=== PATIENT | female | born 1990 | race Caucasian/White ===

== ENCOUNTER 2017-11-15 02:49 | Inpatient (IN) ==
[2017-11-15] MEDS ORDERED: LIDOCAINE HCL 50 ML VIAL PERI PRN (05:10)
[2017-11-15] MEDS ORDERED: RINGER'S SOLUTION,LACTATED 1,000 ML IV ONE (05:10)
[2017-11-15] MEDS ORDERED: OXYTOCIN/DEXTROSE 5%-WATER 30 UNITS/500 ML BAG IV ONE ×2 (05:10→20:55)
[2017-11-15 05:33] LABS: Hemoglobin 11.8 gm/dL (12.5-16.0); Mean Cell Volume 87.1 fl (78-100); Mean Corpuscular Hemoglobin 29.4 pg (27-31); Mean Corpuscular Hgb Conc 33.7 g/dl (32-36); Mean Platelet Volume 13.8 fl (8-12.5); Neutrophil # 6.7 K/mm3 (1.3-6.0); Neutrophil % 65.4 % (42-75.0); Platelet Count 186 K/mm3 (150-450); Red Blood Count 4.02 M/mm3 (4.2-5.4); Red Cell Distribution Width 12.8 % (11.5-14.0); White Blood Count 10.2 K/mm3 (4.0-10.5)
[2017-11-15] MEDS: RINGER'S SOLUTION,LACTATED 1,000 ML IV PRN ×2 (05:51→14:43)
[2017-11-15] MEDS ORDERED: ONDANSETRON HCL/PF 2 MG/ML VIAL IV PRN (06:16)
[2017-11-15] MEDS ORDERED: NALOXONE HCL 1 MG/1 ML SYRG IV PRN (06:16)
[2017-11-15] MEDS ORDERED: BUPIVACAINE HCL/0.9 % NACL/PF 250 ML EP PRN (06:16)
[2017-11-15] MEDS ORDERED: fentaNYL CITRATE/PF 50 MCG/ML AMPUL IT SCH (06:30)
--- NOTE | 2017-11-15 07:10 | ANES ---
Anesthesia Pre Procedure Eval Vitals/Labs: Last Vital Signs Temp 36.9 C 11/15/17 05:27 Pulse 65 11/15/17 07:05 Resp 16 11/15/17 07:05 BP 134/73 11/15/17 07:05 Pulse Ox 99 11/15/17 07:05 HOME MEDICATIONS [id number]/FA/Omega3/Dha/Fish Oil [ Gummies] 1 each PO DAILY 11/15/17 [Last Taken 11/14/17 08:00] Allergies/Adverse Reactions: Allergies Allergy/AdvReac Type Severity Reaction Status Date / Time ropinirole AdvReac Severe Vomiting Verified 11/08/17 09:13 adhesive tape AdvReac Mild RASH Verified 11/08/17 09:13 - Planned Procedure Planned Procedure: LABOR epidural Medication List Reviewed:: Yes Allergies Verified: Yes Medical History (Last Reviewed 11/15/17 @ 07:09 by Sumeet Leal CRNA) Body piercing History of being tatooed Scoliosis Syncope and collapse Vision problems Weight gain Dairy allergy Eczema Migraine Seasonal allergies Crush injury Mononucleosis Vitamin D deficiency Anemia Asthma Depression Dizziness Excessive thirst Fatigue Foot pain GERD (gastroesophageal reflux disease) Left foot pain Lightheadedness Vomiting Surgical History (Last Reviewed 11/15/17 @ 07:09 by Sumeet Leal CRNA) Esophagogastroduodenoscopy with biopsy History of foot surgery History of nasal septoplasty History of oral surgery Hx of upper GI x-ray series Powers teeth removed Family History (Last Reviewed 11/15/17 @ 07:09 by Sumeet Leal CRNA) Father Myocardial infarction Cardiac defibrillator in place Grandfather Hypertension Myocardial infarction Grandfather Diabetes Hypertension Grandmother Meniere's disease Uterine cancer Syncope Grandmother Alzheimers disease Hypertension Mother Graves disease Colitis Sister Bipolar disorder Uncle Autism - Family Anesthesia History Family History:: no untoward family reactions to anesthesia - Airway/Neck/Teeth Within Normal Limits:: Yes Teeth Condition: Intact Mallampatti Score: 1 Thyromental (T-M) distance: > 6 cm Mandibulo Hyoid distance: > 3 cm - Respiratory Respiratory: lungs clear Smoking Status: Never smoker - Cardiovascular Patient History - Cardiac/Respiratory: No pertinent hx Tolerates Activity: Good Heart Sounds: S1 & S2, Regular - Anesthesia Assessment and Plan ASA Class: PS, II, E Anesthesia Type Plan: Epidural
--- NOTE | 2017-11-15 07:11 | ANES ---
Post Anesthesia Discharge - Transfer of Care Transfer of Care handoff given to nurse: Yes - Discharge to ASU Discharge to ASU-no complications/pt stable: Yes - Anesthesia Post Op Note Anesthesia Post Op Note: transferred care to OB RN
--- NOTE | 2017-11-15 07:13 | ANES ---
Anesthesia Procedure Note Procedure Note: ANESTHESIA PROCEDURE NOTE Date of Procedure: 11/15/2017 Time of procedure:[]. Performed by: Rui Leal CRNA Lodging Facilities Manager: None. Preprocedure diagnosis: Active labor. Post procedure diagnosis: Same. Procedure: Insertion of labor epidural. Indications: The patient is a [27] -year-old [primapara ] female in active labor requesting labor epidural for pain management. Findings: See below. Details of the procedure: The patient was placed in a sitting position. Back was prepped with DuraPrep. Patient was then draped in a sterile fashion. Lidocaine 1% was infiltrated to the skin and subcutaneous tissues at the level of the L3 4 interspace. The epidural space was identified using a 18-gauge Tuohy needle with [id number] technique. 20 mcg fentanyl was given intrathecally using a 27 ga. spinal needle. Epidural catheter was inserted without difficulty. Negative test dose was elicited using 5 mL of 1.5% preservative-free lidocaine plus epinephrine 1 200,000. The epidural catheter was then taped and secured in place. EBL: Minimal. Fluids: N/A. Specimen: N/A. Post procedure condition: The patient tolerated the procedure well. No complications were noted. Thank you for this consultation. Acuña CRNA
--- NOTE | 2017-11-15 07:14 | ANES ---
Post Anesthesia Assessment - Vital Signs Vitals: Last Vital Signs Temp 36.9 C 11/15/17 05:27 Pulse 65 11/15/17 07:05 Resp 16 11/15/17 07:05 BP 134/73 11/15/17 07:05 Pulse Ox 99 11/15/17 07:05 Airway Patency: Normal - Mental Status Level Of Consciousness: Awake - Pain Level Pain Score: 0 - N/V Assessment Nausea/Vomiting Presence: None Dehydration:: No
--- NOTE | 2017-11-15 15:03 | HP ---
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 On exam, cervix was dilated to 3 cm, then progressed to 4 cm. SROM was confirmed. The care is uneventful thus far. GBS was negative. PSH: none Medical History (Last Reviewed 11/15/17 @ 07:09 by Sumeet Leal CRNA) Body piercing History of being tatooed Scoliosis Syncope and collapse Vision problems Weight gain Dairy allergy Eczema Migraine Seasonal allergies Crush injury Mononucleosis Vitamin D deficiency Anemia Asthma Depression Dizziness Excessive thirst Fatigue Foot pain GERD (gastroesophageal reflux disease) Left foot pain Lightheadedness Vomiting Surgical History: Surgical History (Last Reviewed 11/15/17 @ 07:09 by Sumeet Leal CRNA) Esophagogastroduodenoscopy with biopsy History of foot surgery History of nasal septoplasty History of oral surgery Hx of upper GI x-ray series [place] teeth removed Family History: Family History (Last Reviewed 11/15/17 @ 07:09 by Sumeet Leal CRNA) Father Myocardial infarction Cardiac defibrillator in place Grandfather Hypertension Myocardial infarction Grandfather Diabetes Hypertension Grandmother Meniere's disease Uterine cancer Syncope Grandmother Alzheimers disease Hypertension Mother Graves disease Colitis Sister Bipolar disorder Uncle Autism Social History: Preferred Language Citizen Of [place] Smoking Status Never smoker Abuse History No History of abuse Psych History Hx of Anxiety,Hx of Depression Review Of Systems (GEN) - Review of Systems Abdominal: Present: Other - contractions Genitourinary: Present: Other - gush of fluid and leaking fluid Misc: All systems neg except as marked Immunizations: IMMUNIZATION HX Immunizations Up to Date Yes History of Influenza Vaccine Yes Hx Pneumococcal Vaccination No Allergies/Adverse Reactions: Allergies Allergy/AdvReac Type Severity Reaction Status Date / Time ropinirole AdvReac Severe Vomiting Verified 11/08/17 09:13 adhesive tape AdvReac Mild RASH Verified 11/08/17 09:13 Home Medications: HOME MEDICATIONS [id number]/FA/Omega3/Dha/Fish Oil [ Gummies] 1 each PO DAILY 11/15/17 [Last Taken 11/14/17 08:00] Exam - Exam Vital Signs: Vital Signs - Last Taken Temp 36.9 C 11/15/17 05:27 Pulse 65 11/15/17 07:05 Resp 16 11/15/17 07:05 BP 134/73 11/15/17 07:05 Pulse Ox 99 11/15/17 07:05 Constitutional: Present: Alert, Oriented x3, Cooperative, Well developed, Well nourished Respiratory: Present: lungs clear, normal breath sounds, no respiratory distress , No rales, No wheezing Cardiovascular/Chest: Present: regular rate, rhythm, no murmur Abdomen: Present: soft, nontender, other - gravid /Rectal: Present: Other - cervix: 4 cm, 90% and -2, grossly ruptured. Extremity: Present: normal range of motion, no pedal edema, no calf tenderness Skin Exam: Present: normal color, warm/dry, no cyanosis Appearance: Present: appropriate appearance Eye contact: Present: cooperative, good eye contact, normal speech Diagnostic Studies: Abnormal Lab Results 11/15/17 Range/Units 05:25 RBC 4.02 L (4.2-5.4) M/mm3 Hgb 11.8 L (12.5-16.0) gm/dL Hct 35.0 L (37.0-47.0) % MPV 13.8 H (8-12.5) fl Immature Gran % (Auto) 0.90 H (0.001-0.429) % Immature Gran # (Auto) 0.09 H (0.000-0.0310) K/mm3 Neutrophils # 6.7 H (1.3-6.0) K/mm3 Laboratory Results WBC 10.2 K/mm3 (4.0-10.5) 11/15/17 05:25 RBC 4.02 M/mm3 (4.2-5.4) L 11/15/17 05:25 Hgb 11.8 gm/dL (12.5-16.0) L 11/15/17 05:25 Hct 35.0 % (37.0-47.0) L 11/15/17 05:25 MCV 87.1 fl (78-100) 11/15/17 05:25 MCH 29.4 pg (27-31) 11/15/17 05:25 MCHC 33.7 g/dl (32-36) 11/15/17 05:25 RDW 12.8 % (11.5-14.0) 11/15/17 05:25 Plt Count 186 K/mm3 (150-450) 11/15/17 05:25 MPV 13.8 fl (8-12.5) H 11/15/17 05:25 Immature Gran % (Auto) 0.90 % (0.001-0.429) H 11/15/17 05:25 Immature Gran # (Auto) 0.09 K/mm3 (0.000-0.0310) H 11/15/17 05:25 Neutrophils % 65.4 % (42-75.0) 11/15/17 05:25 Lymphocytes % 25.3 % (20-51) 11/15/17 05:25 Monocytes % 6.8 % (0.0-9) 11/15/17 05:25 Eosinophils % 0.9 % (0.0-3.0) 11/15/17 05:25 Basophils % 0.7 % (0.0-1.0) 11/15/17 05:25 Nucleated RBC % 0.0 k/mm3 (0-1) 11/15/17 05:25 Neutrophils # 6.7 K/mm3 (1.3-6.0) H 11/15/17 05:25 Lymphocytes # 2.58 k/mm3 (1.5-3.5) 11/15/17 05:25 Monocytes # 0.7 k/mm3 (0.0-1.0) 11/15/17 05:25 Eosinophils # 0.1 k/mm3 (0.0-0.7) 11/15/17 05:25 Absolute Basophils 0.1 k/mm3 (0.0-0.1) 11/15/17 05:25 Blood Type A Positive 11/15/17 05:25 Antibody Screen Negative 11/15/17 05:25 Assessment/Plan - Narrative Narrative: FHR: reassuring [place]: regular A: 27 yo, G1 at 37.3 weeks, SROM in labor, GBS negative. Plan: monitoring. routine labor care. epidural for pain as needed. Stacy Mendes MD
[2017-11-15] MEDS ORDERED: FAMOTIDINE 20 MG in DEXTROSE 5 % IN WATER 100 ML IV ONE ×2 (18:41)
[2017-11-15] MEDS ORDERED: CITRIC ACID/SODIUM CITRATE 60 ML BTL PO SCH (19:01)
[2017-11-15] MEDS ORDERED: HYDROCORTISONE 30 APPL TUBE TP PRN (20:55)
[2017-11-15] MEDS ORDERED: BISACODYL 10 MG SUPP.RECT RC PRN (20:55)
[2017-11-15] MEDS ORDERED: GLYCERIN/WITCH HAZEL LEAF 40 APPL BOX TP PRN (20:55)
[2017-11-15] MEDS ORDERED: SENNOSIDES 8.6 MG TABLET PO PRN (20:55)
[2017-11-15] MEDS ORDERED: diphenhydrAMINE HCL 25 MG CAPSULE PO PRN (20:55)
[2017-11-15] MEDS ORDERED: BENZOCAINE/MENTHOL 81 SPRAY CAN TP PRN (20:55)
--- NOTE | 2017-11-15 20:55 | OR ---
Operative Report - Dictated Report Narrative: Spontaneous Vaginal Delivery Note: 27 yo, G1, 37.3 weeks spontaneous labor GBS negative SROM Analgesia: epidural Augmentation: pitocin Progressed to complete without complications. Perineum cleaned with betadine. Pushed for over 2 hours. Head delivered in SHELL over the perineum. No nuchal cord. The anterior shoulder delivered, followed by the posterior shoulder and the rest of the baby. Baby cried at perineum. Baby placed on maternal abdomen for drying and care by the nursing. Cord was clamped at one minute of life and cut by the patient's mother. Cord blood was obtained. Placenta delivered intact with an accessory lobe and a 3 vessel cord. Cytotec 800 mcg placed rectally due to uterine atony after delivery. Mother and baby tolerated the delivery well. Laceration: 1st degree vaginal. Repaired with 3-0 Vicryl suture. EBL 350 ml. Infant: female, 3732 grams, 8 lbs and 3.6 oz. 8/9. Time of delivery: 20: 21. Stacy Mendes MD History for Definition: * The number of deliveries resulting in a live the patient experienced prior to current hospitalization * The previous delivery of live twins or any live multiple gestation is considered one live event. *If primagravida or nulliparous is documented select zero for the number of previous live births. Live Events: 0
[2017-11-15] MEDS: HYDROcodone/ACETAMINOPHEN 1 EACH TABLET PO PRN (21:34)
[2017-11-15] MEDS ORDERED: MISOPROSTOL 200 MCG TABLET RC ONE (21:50)
[2017-11-15] MEDS: IBUPROFEN 800 MG TABLET PO PRN (23:37)
[2017-11-16] MEDS: DOCUSATE SODIUM 100 MG CAPSULE PO SCH ×3 (00:08→21:34)
[2017-11-16] MEDS: HYDROcodone/ACETAMINOPHEN 1 EACH TABLET PO PRN ×2 (01:44→10:16)
[2017-11-16] MEDS: IBUPROFEN 800 MG TABLET PO PRN (10:17)
--- NOTE | 2017-11-16 13:02 | PN ---
Subjective - Date and Time Seen Date: 11/16/17 Subjective Narrative: day 1, s/p no complaints. breast feeding. normal lochia. pain controlled. Objective - Vitals Vitals: Last Vital Signs Temp 37.3 C 11/16/17 10:01 Pulse 69 11/16/17 10:01 Resp 18 11/16/17 10:01 BP 131/84 11/16/17 10:01 Pulse Ox 99 11/16/17 10:01 - Exam Constitutional: Present: Alert, Oriented x3, Cooperative Respiratory: Present: no respiratory distress Abdomen: Present: soft, nontender, nondistended, other - fundus at umbilicus, non-tender Extremity: Present: normal range of motion, no pedal edema, no calf tenderness Skin Exam: Present: normal color, warm/dry, no cyanosis Appearance: Present: appropriate appearance Eye contact: Present: cooperative, good eye contact, normal speech Cauti Physician Documentation - Urinary Catheter Management Urethral (Bautista) Date of Insertion: 11/15/17 Time of Insertion: 07:30 Assessment/Plan Plan Narrative: A: day 1, s/p stable and well. Plan: routine care. Stacy Mendes MD
[2017-11-16] MEDS: FERROUS SULFATE 325 MG TABLET PO SCH (21:37)
[2017-11-17] MEDS: HYDROcodone/ACETAMINOPHEN 1 EACH TABLET PO PRN (00:19)
[2017-11-17] MEDS: IBUPROFEN 800 MG TABLET PO PRN (00:20)
[2017-11-17 08:30] VITALS: BP 127/83
[2017-11-17] MEDS: DOCUSATE SODIUM 100 MG CAPSULE PO SCH (08:50)
[2017-11-17] MEDS: FERROUS SULFATE 325 MG TABLET PO SCH (08:50)
[2017-11-17] MEDS ORDERED: FERROUS SULFATE 325 MG TABLET PO SCH (09:00)
--- NOTE | 2017-11-17 12:19 | PN ---
Subjective - Date and Time Seen Date: 11/17/17 Subjective Narrative: day 2, s/p complains of sacral area loss of sensation feeling. but ambulating well without difficulty. breast feeding, but nipple sore. educated on how to get baby latched on properly. normal lochia. Objective - Vitals Vitals: Last Vital Signs Temp 36.4 C 11/17/17 07:15 Pulse 61 11/17/17 07:15 Resp 18 11/17/17 07:15 BP 127/83 11/17/17 07:15 Pulse Ox 98 11/17/17 07:15 - Exam Constitutional: Present: Alert, Oriented x3, Cooperative Respiratory: Present: no respiratory distress Cardiovascular/Chest: Present: normal peripheral pulses Abdomen: Present: soft, nontender, nondistended, other - fundus firm and non- tender Extremity: Present: normal range of motion, no pedal edema, no calf tenderness Skin Exam: Present: normal color, warm/dry, no cyanosis Appearance: Present: appropriate appearance Eye contact: Present: cooperative, good eye contact, normal speech Cauti Physician Documentation - Urinary Catheter Management Urethral (Bautista) Date of Insertion: 11/15/17 Time of Insertion: 07:30 Assessment/Plan Plan Narrative: A: day 2, s/p stable. Plan: will discharge home later. Stacy Mendes MD
== END 2017-11-17 14:00 | disposition home or self-care (01) | DRG 775 ==
LOC: OBCLINIC 02:49 → OB 05:01
PROVIDERS: ADMIT Obstetrics & Gynecology; ATTEND Obstetrics & Gynecology
CPT/HCPCS: 36415; 59025; 85025; 86850; 86900; 88307